=== PATIENT | female | born 1975 | race American Indian/Alaskan Native ===

== ENCOUNTER 2019-01-21 02:41 | Emergency (ER) | payer OTHER ==
[2019-01-21 02:49] VITALS: BP 151/68
[2019-01-21] MEDS ORDERED: ULTRAM PO ONE (04:50)
[2019-01-21] MEDS ORDERED: TRIMOX PO ONE (04:50)
[2019-01-21] MEDS ORDERED: BENADRYL PO ONE (04:51)
--- NOTE | 2019-01-21 05:09 | Emergency Department Report ---
ED ENT HPI - General Chief complaint: Earache Stated complaint: COLD SX/EAR PAIN Source: patient Mode of arrival: Ambulatory Limitations: No Limitations - History of Present Illness Initial comments: This 43-year-old demented female who presents for bilateral ear pain sore throat and sinus congestion 3 days with stated fever studies on O2 at home no fever noted in triage today there is clinical able to noted during interview however there is no shortness of breath there is no wheezing symptoms are exacerbated by environmental exposure symptoms are relieved temporarily by rest patient has not taken [id number] cold medicines complaint: ear pain Onset/Timin -: days(s) Location: R ear, L ear, throat Severity: moderate Severity scale (0 -10): 5 Quality: aching Consistency: constant Improves with: none Worsens with: other (environmental exposure ) Context- Ear: recent travel Associated Symptoms: fever, sore throat, rhinorrhea - Related Data Previous Rx's Medication Instructions Recorded Last Taken Type Dextroamphetamine/Amphetamine 5 mg PO TID #10 tablet 03/08/14 Unknown Rx [Adderall] Fluticasone Propionate [Flonase] 200 mcg NS QDAY #1 spray 03/08/14 Unknown Rx Olopatadine HCl [Patanase] 30.5 gm NS BID #1 spray.pump 03/08/14 Unknown Rx Butalb/Acetaminophen/Caffeine 1 each PO Q6H PRN #20 capsule 12/24/14 Unknown Rx [Fioricet 50-300-40 mg Capsule] Ferrous Sulfate [Feosol 325 MG tab] 325 mg PO BID #60 tablet 12/24/14 Unknown Rx Ibuprofen [Motrin] 600 mg PO Q8H PRN #30 tablet 12/24/14 Unknown Rx Lisinopril [Zestril TAB] 10 mg PO QDAY #30 tablet 12/24/14 Unknown Rx Ciprofloxacin HCl [Cipro] 500 mg PO Q12H #14 tab 04/11/15 Unknown Rx HYDROcodone/APAP 10-325 [[place] 1 each PO Q6HR PRN #16 tablet 04/11/15 Unknown Rx 10-325 mg TAB] Fluconazole [Diflucan] 150 mg PO ONCE #2 tablet 04/14/15 Unknown Rx Amoxicillin 500 mg PO TID 10 Days #30 capsule 01/21/19 Unknown Rx Benzonatate [Tessalon Perle] 100 mg PO TID PRN #30 capsule 01/21/19 Unknown Rx Ibuprofen 800 mg PO TID PRN #30 tablet 01/21/19 Unknown Rx diphenhydrAMINE [Benadryl CAP] 25 mg PO Q6HR PRN #30 capsule 01/21/19 Unknown Rx Allergies Allergy/AdvReac Type Severity Reaction Status Date / Time No Known Allergies Allergy Unverified 01/21/19 02:46 ED Dental HPI - General Chief complaint: Earache Stated complaint: COLD SX/EAR PAIN Source: patient Mode of arrival: Ambulatory Limitations: No Limitations - Related Data Previous Rx's Medication Instructions Recorded Last Taken Type Dextroamphetamine/Amphetamine 5 mg PO TID #10 tablet 03/08/14 Unknown Rx [Adderall] Fluticasone Propionate [Flonase] 200 mcg NS QDAY #1 spray 03/08/14 Unknown Rx Olopatadine HCl [Patanase] 30.5 gm NS BID #1 spray.pump 03/08/14 Unknown Rx Butalb/Acetaminophen/Caffeine 1 each PO Q6H PRN #20 capsule 12/24/14 Unknown Rx [Fioricet 50-300-40 mg Capsule] Ferrous Sulfate [Feosol 325 MG tab] 325 mg PO BID #60 tablet 12/24/14 Unknown Rx Ibuprofen [Motrin] 600 mg PO Q8H PRN #30 tablet 12/24/14 Unknown Rx Lisinopril [Zestril TAB] 10 mg PO QDAY #30 tablet 12/24/14 Unknown Rx Ciprofloxacin HCl [Cipro] 500 mg PO Q12H #14 tab 04/11/15 Unknown Rx HYDROcodone/APAP 10-325 [[place] 1 each PO Q6HR PRN #16 tablet 04/11/15 Unknown Rx 10-325 mg TAB] Fluconazole [Diflucan] 150 mg PO ONCE #2 tablet 04/14/15 Unknown Rx Amoxicillin 500 mg PO TID 10 Days #30 capsule 01/21/19 Unknown Rx Benzonatate [Tessalon Perle] 100 mg PO TID PRN #30 capsule 01/21/19 Unknown Rx Ibuprofen 800 mg PO TID PRN #30 tablet 01/21/19 Unknown Rx diphenhydrAMINE [Benadryl CAP] 25 mg PO Q6HR PRN #30 capsule 01/21/19 Unknown Rx Allergies Allergy/AdvReac Type Severity Reaction Status Date / Time No Known Allergies Allergy Unverified 01/21/19 02:46 ED Review of Systems ROS: Stated complaint: COLD SX/EAR PAIN Other details as noted in HPI Constitutional: denies: chills, fever Eyes: denies: eye pain, eye discharge, vision change ENT: ear pain, congestion. denies: throat pain Respiratory: cough Cardiovascular: denies: chest pain, palpitations Endocrine: no symptoms reported Gastrointestinal: denies: abdominal pain, nausea, diarrhea Genitourinary: denies: urgency, dysuria, discharge Musculoskeletal: denies: back pain, joint swelling, arthralgia Skin: denies: rash, lesions Neurological: denies: headache, weakness, paresthesias Psychiatric: denies: anxiety, depression Hematological/Lymphatic: denies: easy bleeding, easy bruising ED Past Medical Hx - Past Medical History Hx Hypertension: Yes Additional medical history: ADHD - Surgical History Additional Surgical History: Umbilical hernia repair - Social History Smoking Status: Never Smoker Substance Use Type: None - Medications Home Medications: Home Medications Medication Instructions Recorded Confirmed Last Taken Type Dextroamphetamine/Amphetamine 5 mg PO TID #10 tablet 03/08/14 Unknown Rx [Adderall] Fluticasone Propionate [Flonase] 200 mcg NS QDAY #1 spray 03/08/14 Unknown Rx Olopatadine HCl [Patanase] 30.5 gm NS BID #1 spray.pump 03/08/14 Unknown Rx Butalb/Acetaminophen/Caffeine 1 each PO Q6H PRN #20 capsule 12/24/14 Unknown Rx [Fioricet 50-300-40 mg Capsule] Ferrous Sulfate [Feosol 325 MG tab] 325 mg PO BID #60 tablet 12/24/14 Unknown Rx Ibuprofen [Motrin] 600 mg PO Q8H PRN #30 tablet 12/24/14 Unknown Rx Lisinopril [Zestril TAB] 10 mg PO QDAY #30 tablet 12/24/14 Unknown Rx Ciprofloxacin HCl [Cipro] 500 mg PO Q12H #14 tab 04/11/15 Unknown Rx HYDROcodone/APAP 10-325 [[place] 1 each PO Q6HR PRN #16 tablet 04/11/15 Unknown Rx 10-325 mg TAB] Fluconazole [Diflucan] 150 mg PO ONCE #2 tablet 04/14/15 Unknown Rx Amoxicillin 500 mg PO TID 10 Days #30 capsule 01/21/19 Unknown Rx Benzonatate [Tessalon Perle] 100 mg PO TID PRN #30 capsule 01/21/19 Unknown Rx Ibuprofen 800 mg PO TID PRN #30 tablet 01/21/19 Unknown Rx diphenhydrAMINE [Benadryl CAP] 25 mg PO Q6HR PRN #30 capsule 01/21/19 Unknown Rx ED Physical Exam - General Limitations: No Limitations General appearance: alert, in no apparent distress - Head Head exam: Present: atraumatic, normocephalic - Eye Eye exam: Present: normal appearance, PERRL, EOMI Pupils: Present: normal accommodation - ENT ENT exam: Present: mucous membranes moist - Expanded ENT Exam Expanded Ear exam: Present: normal external inspection TM/Canal exam: Erythema: Right TM, Left TM, Canal Tenderness: Right TM, Left TM Mouth exam: Absent: trismus Throat exam: Positive: tonsillar erythema, other (uvula midline no exudate no lesions no stridor ). Negative: tonsillomegaly, tonsillar exudate, R peritonsillar mass, L peritonsillar mass - Neck Neck exam: Present: normal inspection, full ROM. Absent: tenderness, lymphadenopathy - Respiratory Respiratory exam: Present: normal lung sounds bilaterally. Absent: respiratory distress, wheezes, stridor, chest wall tenderness - Cardiovascular Cardiovascular Exam: Present: regular rate, normal rhythm, normal heart sounds. Absent: systolic murmur, diastolic murmur, rubs, gallop - GI/Abdominal GI/Abdominal exam: Present: soft. Absent: distended, tenderness, rebound, rigid, bruit, hernia - Rectal Rectal exam: Present: deferred - Extremities Exam Extremities exam: Present: normal inspection, full ROM, normal capillary refill. Absent: tenderness - Back Exam Back exam: Present: normal inspection, full ROM. Absent: tenderness, CVA tenderness (R), CVA tenderness (L), muscle spasm, paraspinal tenderness, vertebral tenderness, rash noted - Neurological Exam Neurological exam: Present: alert, oriented X3, CN II-XII intact - Psychiatric Psychiatric exam: Present: normal affect, normal mood - Skin Skin exam: Present: warm, dry, intact, normal color. Absent: rash ED Course Vital Signs 01/21/19 02:47 Temperature 97.9 F Pulse Rate 76 Respiratory 18 Rate Blood Pressure 151/68 O2 Sat by Pulse 99 Oximetry ED Medical Decision Making - Medical Decision Making this is aom , URI plan tx for same with amoxicillin , ibuprofen, benadryl, tessalon pears pt will follow up with pcp in 2-3 days given referral to [facility]. pt dc to home in stable condition at this time. Critical care attestation.: If time is entered above; I have spent that time in minutes in the direct care of this critically ill patient, excluding procedure time. ED Disposition Clinical Impression: Upper respiratory disease AOM (acute otitis media) Qualifiers: Otitis media type: serous Laterality: bilateral Recurrence: non-recurrent Qu alified Code(s): H65.03 - Acute serous otitis media, bilateral Disposition: DC-01 TO HOME OR SELFCARE Is pt being admited?: No Does the pt Need Aspirin: No Condition: Stable Instructions: Otitis Media (ED), Upper Respiratory Infection (ED) Prescriptions: Amoxicillin 500 mg PO TID 10 Days #30 capsule diphenhydrAMINE [Benadryl CAP] 25 mg PO Q6HR PRN #30 capsule PRN Reason: congesiton Ibuprofen 800 mg PO TID PRN #30 tablet PRN Reason: pain fever Benzonatate [Tessalon Perle] 100 mg PO TID PRN #30 capsule PRN Reason: Cough Referrals: [facility] [Outside] - 3-5 Days Forms: Work/School Release Form(ED) Time of Disposition: 05:18
== END 2019-01-21 05:43 | disposition home or self-care (01) ==
LOC: ED 02:41
DX: J06.9 Acute upper respiratory infection, unspecified (principal); H65.03 Acute serous otitis media, bilateral; I10 Essential (primary) hypertension
CPT/HCPCS: 99282

== ENCOUNTER → 2019-02-25 09:07 | Emergency (ER) | payer SELFPAY | END | disposition left against medical advice (07) | LOC: ED 09:07 | DX: B37.9 Candidiasis, unspecified (principal); Z53.21 Procedure and treatment not carried out due to patient leaving prior to being seen by health care provider ==